=== PATIENT | male | born 1975 | race Caucasian/White ===

== ENCOUNTER 2018-01-03 10:51 | Emergency (ER) | payer BC, OTHER ==
[~2018-01-03] VITALS: Ht 185.4 cm; Wt 115.7 kg
[2018-01-03] MEDS ORDERED: UNICOMPLEX M TA1 TA1 PO (11:03)
[2018-01-03] MEDS ORDERED: LEXAPRO5 MG PO (11:03)
[2018-01-03] MEDS ORDERED: CELEBREX 200 M200 M1 PO (11:04)
[2018-01-03 11:49] VITALS: BP 128/81
== END 2018-01-03 12:08 | disposition home or self-care (01) ==
LOC: ER 10:51
DX: R20.0 Anesthesia of skin (principal); F17.220 Nicotine dependence, chewing tobacco, uncomplicated